=== PATIENT | female | born 1970 | race Caucasian/White ===

== ENCOUNTER 2017-01-17 18:04 | Emergency (ER) | payer MEDICARE | END 2017-01-17 19:22 | disposition home or self-care (01) | LOC: ER1 18:04 | DX: M25.562 Pain in left knee (principal); R22.42 Localized swelling, mass and lump, left lower limb; C50.919 Malignant neoplasm of unspecified site of unspecified female breast; F17.200 Nicotine dependence, unspecified, uncomplicated; Z79.891 Long term (current) use of opiate analgesic; Z79.899 Other long term (current) drug therapy | CPT/HCPCS: 96372; 99283; J1650 ==

== ENCOUNTER → 2017-01-18 | Outpatient (CLI) | payer MEDICARE | LOC: US 12:37 | DX: M79.662 Pain in left lower leg (principal); M79.89 Other specified soft tissue disorders | CPT/HCPCS: 93971 ==

== ENCOUNTER → 2020-09-05 | Outpatient (CLI) | payer MEDICARE ==
[~2020-09-05] MED LIST: AMITRIPTYLINE H25 MG PO; BENTYL 20MG TAB20 MG PO; CHLORTHALIDONE PO; CLONIDINE PO; GABAPENTIN800 MG PO; IBUPROFEN800 MG PO; LACTULOSE PO; SUBOXONE 8 MG-1 EACH SL; XANAX2 MG PO; ZOFRAN ODT 4 MG4 MG PO
== END ==
LOC: HEART 5 15:11
DX: J45.30 Mild persistent asthma, uncomplicated (principal); R06.02 Shortness of breath
CPT/HCPCS: 94010; 95012